=== PATIENT | male | born 1940 | race Hispanic/Latino ===

== ENCOUNTER → 2022-02-19 | Outpatient (CLI) | payer OTHER ==
[~2022-02-19] MED LIST: DIATR MEGLU/DIATRIZOATE SODIUM 30 ML BOTTLE ONE
== END | disposition home or self-care (01) ==
LOC: RAH 10:31
PROVIDERS: ATTEND Internal Medicine Gastroenterology
DX: K94.20 Gastrostomy complication, unspecified (principal)
CPT/HCPCS: 74018; Q9963

== ENCOUNTER → 2023-02-05 | Outpatient (CLI) | payer OTHER | END | disposition home or self-care (01) | LOC: RAH 10:22 | PROVIDERS: ATTEND Internal Medicine Gastroenterology | DX: K94.20 Gastrostomy complication, unspecified (principal); M47.815 Spondylosis without myelopathy or radiculopathy, thoracolumbar region | CPT/HCPCS: 74018; Q9963 ==

== ENCOUNTER → 2023-10-15 | Outpatient (CLI) | payer OTHER | END | disposition home or self-care (01) | LOC: RAH 11:48 | PROVIDERS: ATTEND Internal Medicine Gastroenterology | DX: K94.20 Gastrostomy complication, unspecified (principal) | CPT/HCPCS: 74018; Q9963 ==

== ENCOUNTER → 2024-04-06 | Outpatient (CLI) | payer OTHER ==
[~2024-04-06] MED LIST changes: -DIATR MEGLU/DIATRIZOATE SODIUM 30 ML BOTTLE ONE; +IOHEXOL 350 MG/ML 100ML INFUS..BTL IV ONE
== END | disposition home or self-care (01) ==
LOC: RAH 09:25
PROVIDERS: ATTEND Internal Medicine Gastroenterology
DX: K80.20 Calculus of gallbladder without cholecystitis without obstruction (principal); I25.10 Atherosclerotic heart disease of native coronary artery without angina pectoris; M47.815 Spondylosis without myelopathy or radiculopathy, thoracolumbar region; I70.90 Unspecified atherosclerosis; R63.4 Abnormal weight loss
CPT/HCPCS: 74177; Q9967

== ENCOUNTER 2025-02-28 10:38 | Emergency (ER) | payer OTHER, MEDICARE ==
[~2025-02-28] VITALS: Ht 175.3 cm; Wt 99.8 kg
--- NOTE | 2025-02-28 11:00 | NUR ---
PATIENT NOTED WITH ANASARCA, NO DISTRESS NOTED, PAITENT HAS GTUBE IN PLACE, CLEAN DRY AND INTACT, PATIENT ALSO NOTED WITH BILIARY DRAIN, SUTURED IN PLACE, SCANT DRAINAGE NOTED TO FOAM DRESSING THAT WAS PLACED BY SHELTER. REMOVED AT THIS TIME, NO DRAINAGE NOTED TO INSERTION SITE. PER DAUGHTER HE ACCIDENTLY PULLED ON THE DRAIN AND IS CONCERNED ABOUT IT BEING "IN PLACE" PER DAUGHTER PATIENT IS C/O OF PAIN TO THAT AREA. PATIENT ALSO NOTED WITH SKIN TEARS TO BILATERAL ARMS, DIFFERENT HEALING STAGES. AFTER PATINET WAS CLEANED AND ASSESSED, NOTED A SMALL 2 CM SKIN TEAR TO IV AREA, SCANT BLEEDING, CLEANED AND DRIED. 24 GAUGE IV TO LEFT FOREARM NOTED, SWELLING TO LEFT ARM AND HAND NOTED, FLUSHES WELL, NO C/O PAIN, NO SWELLING NOTED ABOVE IV SITE
--- NOTE | 2025-02-28 11:04 | ERN ---
ED Note History of Present Illness Stated Complaint: RUQ DRAINAGE TUBE COMPLICATION Chief Complaint: Other Problems Time Seen by MD: 10:44 Time Seen by Midlevel: 10:45 Dictation: 85-year-old male who presents to the emergency department per EMS for evaluation accompanied by his daughter due to report of having accidentally pulled on the drainage tube that was applied 2 days ago from having had gallbladder surgery. The concern by the patient/daughter is that part of the tube my had been disp laced. As per the patient and the daughter, the reason for that concern is that he is having abdominal pain at this point. Patient states that his pain is approximately a 3/10. He describes the discomfort as a 3 out of 10. There is no report of any fever or chills associated with this. Allergies: Coded Allergies: lisinopril (Unverified Allergy, Unknown, 02/28/25) sulfamethoxazole (Unverified Allergy, Unknown, 02/28/25) trimethoprim (Unverified Allergy, Unknown, 02/28/25) Past Medical History Past Medical History: CHF, Diabetes-Type II, Hypertension, Pneumonia, Stroke Additional Past Medical Hx: DYSPHAGIA, DYSARTHRIA, UNSTABLE GAIT Surgical History: Cholecystectomy Surgical History Other: DRAINAGE DEVICE RUQ, PEG TUBE RN Note Reviewed/Agreed w/PFSH: Yes Review of System Dictation Abdomen/GI: Abdominal pain Initial Vital Sign VS Vital Signs Date Time Temp Pulse Resp B/P (MAP) Pulse Ox O2 Delivery O2 Flow Rate FiO2 02/28/25 10:39 97.7 71 16 132/59 99 Room Air 0 02/28/25 10:58 21 Physical Exam Dictation General: awake, alert, mildly uncomfortable looking Head/Face: Normocephalic, atraumatic Eyes: PERRL, EOMI ENT: Oral mucosa moist Neck: Trachea midline, supple Cardiovascular: RRR, no edema Respiratory: Symmetrical, non-labored Abdomen: Soft, tenderness to right upper quadrant and epigastric area with voluntary guarding, non-distended, no guarding. Skin: Warm, dry, good turgor, no rash MS/Extremity: Pulses equal, no cyanosis, neurovascular intact, FROM Neuro: Awake and alert Psych: Normal behavior, mood, and affect normal Results (Laboratory/Radiology) Laboratory/Radiology Laboratory Tests Test 02/28/25 11:28 White Blood Count 7.6 K/uL (4.8-10.8) Red Blood Count 3.63 MIL/uL (4.50-6.20) L Hemoglobin 11.1 g/dL (14.0-18.0) L Hematocrit 36.0 % (42-54) L Mean Corpuscular Volume 99.2 fL (79-99) H Mean Corpuscular Hemoglobin 30.6 pg (27.0-33.0) Mean Corpuscular Hemoglobin Concent 30.8 g/dL (32.0-36.0) L Red Cell Distribution Width 17.7 % (11.0-15.5) H Platelet Count 257 K/uL (130-400) Mean Platelet Volume 10.4 fL (7.5-10.5) Immature Granulocyte % (Auto) 0.4 % (0-1) Neutrophils (%) (Auto) 73.0 % (40.0-77.0) Lymphocytes (%) (Auto) 16.4 % (21.0-51.0) L Monocytes (%) (Auto) 8.7 % (3.0-13.0) Eosinophils (%) (Auto) 1.4 % (0.0-8.0) Basophils (%) (Auto) 0.1 % (0.0-5.0) Neutrophils # (Auto) 5.6 K/uL (1.8-7.7) Lymphocytes # (Auto) 1.3 K/uL (1.0-4.8) Monocytes # (Auto) 0.7 K/uL (0.1-1.0) Eosinophils # (Auto) 0.11 K/uL (0.00-0.70) Basophils # (Auto) 0.01 K/uL (0.00-0.20) Absolute Immature Granulocyte (auto 0.03 K/uL (0-1) Nucleated Red Blood Cells 0.0 % (0.0-0.19) Red Blood Cell Morphology See comments Sodium Level 140 mmol/L (136-145) Potassium Level 4.5 mmol/L (3.5-5.1) Chloride Level 104 mmol/L (101-111) Carbon Dioxide Level 36 mmol/L (21-32) H Blood Urea Nitrogen 20 mg/dL (7-18) H Creatinine 0.8 mg/dL (0.5-1.3) Glomerular Filtration Rate Calc 87 mL/min (>90) Random Glucose 118 mg/dL (70-105) H Total Calcium 9.0 mg/dL (8.5-10.1) Total Bilirubin 0.8 mg/dL (0.2-1.0) Aspartate Amino Transf (AST/SGOT) 36 U/L (10-37) Alanine Aminotransferase (ALT/SGPT) 26 U/L (12-78) Alkaline Phosphatase 236 U/L (50-136) H Troponin I High Sensitivity 35 ng/L (4-75) Total Protein 7.8 g/dL (6.0-8.3) Albumin 2.0 g/dL (3.5-5.0) L Lipase 11 U/L (16-77) L Labs Reviewed?: Yes CT Scan Comment: CT abdomen/pelvis with no pertinent findings. ED Course ED Course Orders Procedure Category Date Status Time Troponin I High LAB 02/28/25 Complete Sensitivity 10:56 Cbc With Differential LAB 02/28/25 Complete 10:56 Comprehensive LAB 02/28/25 Complete Metabolic Panel 10:56 Lipase LAB 02/28/25 Complete 10:56 Ct Abdomen/Pelvis CT 02/28/25 Resulted W/Contrast 10:56 Morphine 4mg Syg PHA 02/28/25 Complete (Morphine 4mg Syg) 11:00 Ondansetron 4mg Inj PHA 02/28/25 Complete (Zofran 4mg Inj) 11:00 Chest 1vw RAD 02/28/25 Resulted 10:56 Iohexol (Omnipaque) PHA 02/28/25 Complete 12:15 Current Medications Medications (Trade) Dose Ordered Sig/Bee Route PRN Reason Start Time Stop Time Status Last Admin Dose Admin Iohexol (Omnipaque) 75 ml STK-MED ONCE IV 02/28/25 12:15 02/28/25 12:16 DC Morphine Sulfate (morPHINE 4MG SYG) 2 mg ONCE ONCE IVP 02/28/25 11:00 02/28/25 11:01 DC 02/28/25 11:41 Ondansetron HCl (zoFRAN 4MG INJ) 4 mg ONCE ONCE IVP 02/28/25 11:00 02/28/25 11:01 DC 02/28/25 11:39 Vital Signs Date Time Temp Pulse Resp B/P (MAP) Pulse Ox O2 Delivery O2 Flow Rate FiO2 02/28/25 10:58 98.2 70 18 120/60 96 Room Air* 0 21 02/28/25 10:39 97.7 71 16 132/59 99 Room Air 0 Medical Decision Making MDM MDM: Differential diagnosis: Rationale: Tests considered and ordered secondary to shared decision making include: Previous outside records reviewed: Old ER visits. Risk of complication and/or morbidity or mortality of patient management: None Medications-Per medication reconciliation Need for hospitalization: Patient does not meet criteria for hospitalization. Need for emergency major/minor surgery: No There are no social concerns with this patient. Prescription drug management Prescriptions will include symptomatic care Patient's prior external medical records from other ER visits were reviewed by me as indicated. Prior testing and results from previous visits were reviewed. Prior tests were taken into account with medical decision making and resource utilization, independent historian/historians were used to obtain complete medical history. I independently interpreted the test that were performed, results were reviewed by me and considered findings on radiology if ordered. Medical management and examination interpretation discussions were had by me with other qualified healthcare professionals as indicated for the patient's care. DX & DISP Disposition: Discharge Departure Impression: Primary Impression: Acute abdominal pain Condition: Stable Referrals: JOLENE BRYANT MD (PCP) Time of Disposition: 13:15 IZABELLA BARNARD Feb 28, 2025 11:04
--- NOTE | 2025-02-28 11:31 | HMCIMG ---
Exam Type: CHEST 1VW Clinical Information: pain Comparison: None Findings: Left cardiac pacemaker is noted with leads in place. There is prominence of the pulmonary vascular markings consistent with pulmonary venous congestion. . There is central bilateral perihilar edema consistent with congestive heart failure. The heart is enlarged in size. The bony and soft tissue structures of the chest are unremarkable. Impression: Congestive heart failure with perihilar edema as noted.
[2025-02-28] MEDS: ondanSETRON 4MG INJ IVP ONE (11:39)
[2025-02-28] MEDS: morPHINE 4 MG SYG IVP ONE (11:41)
[2025-02-28 11:53] LABS: BASOPHILS # (AUTO) 0.01 K/uL (0.00-0.20); BASOPHILS % (AUTO) 0.1 % (0.0-5.0); EOSINOPHILS # (AUTO) 0.11 K/uL (0.00-0.70); EOSINOPHILS % (AUTO) 1.4 % (0.0-8.0); IMMATURE GRANULOCYTE ABSOLUTE 0.03 K/uL (0-1); LYMPHOCYTES # (AUTO) 1.3 K/uL (1.0-4.8); LYMPHOCYTES % (AUTO) 16.4 % (21.0-51.0); MEAN CORPUSCULAR HEMOGLOBIN 30.6 pg (27.0-33.0); MEAN CORPUSCULAR HGB CONC 30.8 g/dL (32.0-36.0); MEAN CORPUSCULAR VOLUME 99.2 fL (79-99); MONOCYTES # (AUTO) 0.7 K/uL (0.1-1.0); MONOCYTES % (AUTO) 8.7 % (3.0-13.0); NEUTROPHILS # (AUTO) 5.6 K/uL (1.8-7.7); PLATELET COUNT (AUTO) 257 K/uL (130-400); RED BLOOD CELL COUNT(AUTO) 3.63 MIL/uL (4.50-6.20); RED CELL DISTRIBUTION WIDTH 17.7 % (11.0-15.5); WHITE BLOOD COUNT (AUTO) 7.6 K/uL (4.8-10.8)
[2025-02-28 11:59] LABS: CREATININE 0.8 mg/dL (0.5-1.3); POTASSIUM 4.5 mmol/L (3.5-5.1)
[2025-02-28 12:05] LABS: BILIRUBIN,TOTAL 0.8 mg/dL (0.2-1.0); TOTAL PROTEIN, SERUM 7.8 g/dL (6.0-8.3)
[2025-02-28] MEDS ORDERED: IOHEXOL-350 75 ML VIAL IV ONE (12:15)
--- NOTE | 2025-02-28 13:00 | HMCIMG ---
Exam Type: CT ABDOMEN/PELVIS W/CONTRAST Clinical Information: pain Comparison: None Contrast: 100 cc's Isovue 370 IV, no complications or adverse reactions CT Dose Index (CTDI): 31.60 mGy Dose Length Product (DLP): 1740.80 total mGy-cm Findings: No evidence of nephro or ureterolithiasis is found. No hydronephrosis or ureteral dilatation is seen. There are moderate bilateral pleural effusions The stomach is unremarkable except for the presence of a PEG tube. It is not overly distended. There are no surrounding inflammatory changes. No wall lesions are identified to suggest cancer. The spleen is unremarkable. It is not enlarged. The pancreas shows normal anatomy. It is not fatty replaced. It shows no lesions. The pancreatic duct is not dilated. There is evidence of cholelithiasis. No evidence of acute or chronic inflammation is seen. The adrenal glands are unremarkable. There is no enlargement. No lesions are noted. The liver is unremarkable. It shows no focal masses. The appendix is unremarkable. It shows no evidence of inflammation. No appendicolith is seen. The small bowel is unremarkable. There is no evidence of dilatation to suggest obstruction. No evidence of adynamic ileus is seen. There is no small bowel wall thickening to suggest enteritis. The colon is unremarkable. Urinary bladder is distended. The other pelvic structures are unremarkable. The bony and vascular structures are unremarkable for the patient's age. IMPRESSION: Cholelithiasis. Bilateral moderate pleural effusions. Other findings as described. This study was performed using dose reduction techniques to include automated exposure control and/or adjustment of the mA and/or kV according to patient size.
--- NOTE | 2025-02-28 13:32 | NUR ---
[facility] NOTIFIED OF TRANSFER.
[2025-02-28 13:37] VITALS: O2SAT 96
--- NOTE | 2025-02-28 14:30 | NUR ---
DISCHARGE INST GIVEN TO DAUGHTER, PENDING EMS TRANSPORT TO [facility]
--- NOTE | 2025-02-28 17:00 | NUR ---
[facility] ARRIVED AT THIS TIME STAMP
[2025-02-28 17:03] VITALS: BP 121/64; PULSE 70; RESP 20; TEMP 98.2
--- NOTE | 2025-02-28 17:04 | NUR ---
EMS IN TO TRANSPORT PATIENT BACK TO [facility], DAUGHTER AT BEDSIDE, PATINET AWAKE AND ALERT, NO DISTRESS NOTED
[2025-03-01] MEDS ORDERED: METO25TA6 PO (22:08)
[2025-03-01] MEDS ORDERED: APIX5TAB PEG (22:09)
[2025-03-01] MEDS ORDERED: METF-446 PEG (22:10)
[2025-03-01] MEDS ORDERED: FINA5TAB41 PEG (22:14)
[2025-03-01] MEDS ORDERED: PRAV40TA62 PEG (22:16)
[2025-03-01] MEDS ORDERED: FURO20TA4 PEG (22:17)
[2025-03-01] MEDS ORDERED: AMOX1TAB15 PEG (22:20)
== END 2025-02-28 17:06 ==
LOC: EDH 10:38
DX: R10.11 Right upper quadrant pain (principal); R10.13 Epigastric pain; E11.9 Type 2 diabetes mellitus without complications; I11.0 Hypertensive heart disease with heart failure; I50.9 Heart failure, unspecified; Z86.73 Personal history of transient ischemic attack (TIA), and cerebral infarction without residual deficits; Z88.1 Allergy status to other antibiotic agents; Z88.2 Allergy status to sulfonamides; Z88.8 Allergy status to other drugs, medicaments and biological substances; Z90.49 Acquired absence of other specified parts of digestive tract
CPT/HCPCS: 99285; 74177; 96374; 71045; 96375; 84484; 80053; 83690; 85025; 36415; J2405; J2270; Q9967

== ENCOUNTER 2025-03-01 18:00 | Observation (INO) | payer OTHER, MEDICARE ==
[~2025-03-01] VITALS: Ht 177.8 cm; Wt 94.8 kg
[2025-03-01 19:53] LABS: BASOPHILS # (AUTO) 0.01 K/uL (0.00-0.20); BASOPHILS % (AUTO) 0.2 % (0.0-5.0); EOSINOPHILS % (AUTO) 1.5 % (0.0-8.0); HEMATOCRIT 34.3 % (42-54); IMMATURE GRANULOCYTE ABSOLUTE 0.02 K/uL (0-1); LYMPHOCYTES # (AUTO) 1.2 K/uL (1.0-4.8); LYMPHOCYTES % (AUTO) 18.2 % (21.0-51.0); MEAN CORPUSCULAR HEMOGLOBIN 30.6 pg (27.0-33.0); MEAN CORPUSCULAR HGB CONC 30.6 g/dL (32.0-36.0); MONOCYTES # (AUTO) 0.6 K/uL (0.1-1.0); NEUTROPHILS # (AUTO) 4.6 K/uL (1.8-7.7); NEUTROPHILS % (AUTO) 70.8 % (40.0-77.0); PLATELET COUNT (AUTO) 270 K/uL (130-400); RED BLOOD CELL COUNT(AUTO) 3.43 MIL/uL (4.50-6.20); RED CELL DISTRIBUTION WIDTH 17.6 % (11.0-15.5); WHITE BLOOD COUNT (AUTO) 6.5 K/uL (4.8-10.8)
--- NOTE | 2025-03-01 19:53 | NUR ---
pt arrived with gall bladder drain compication, drain as per daughter has not drained all day usiually pt has out put at 100 ml a day. pt did get up yesterday and accidently pulled on tube. pt has drain applied at [facility] in [place]. site looks good no redness, swelling or pain.
--- NOTE | 2025-03-01 20:00 | HMCIMG ---
ULTRASOUND ABDOMEN LIMITED INDICATION: Right upper abdominal pain COMPARISON: 02/28/2025 CT abdomen and pelvis. FINDINGS: The liver is normal in size and slightly increased in echogenicity; no focal lesion demonstrated. Main portal vein is patent, and normal direction of vascular flow demonstrated. Common bile duct is obscured by overlying bowel gas. Complex gallbladder sludge without associated pericholecystic fluid. No sonographic Navarro's sign elicited by the ultrasound hydroelectric station operator chief. Visible portions of the pancreas appear normal. The right kidney measures 9.7 x 4.8 x 5.7 cm,and is normal in echogenicity, without evidence for hydronephrosis.No shadowing stones demonstrated. No free fluid demonstrated. Small right pleural effusion. Echogenic "catheter-like" structure demonstrated within the anterior right upper abdominal wall. IMPRESSION: Complex gallbladder sludge without cholecystitis. Tip of cholecystostomy catheter may be within the anterior right upper abdominal wall. Small right pleural effusion. Findings suggesting mild hepatic steatosis.
[2025-03-01 20:08] LABS: CREATININE 0.8 mg/dL (0.5-1.3); POTASSIUM 4.4 mmol/L (3.5-5.1)
[2025-03-01 20:09] LABS: INR 1.32 (0.85-1.15); PROTHROMBIN TIME 13.6 SEC (9.6-11.6)
[2025-03-01 20:11] LABS: PARTIAL THROMBOPLASTIN TIME 34.2 SEC (26.3-35.5)
[2025-03-01 20:15] LABS: ALBUMIN 1.9 g/dL (3.5-5.0); BILIRUBIN,DIRECT 0.3 mg/dL (0.0-0.3); BILIRUBIN,TOTAL 0.6 mg/dL (0.2-1.0); TOTAL PROTEIN, SERUM 7.6 g/dL (6.0-8.3)
--- NOTE | 2025-03-01 20:16 | ERN ---
General Chief Complaint: Post-Op Problem Stated Complaint: GALLBLADDER BAG FULL/ NEEDS TO BE DRAINED History of Present Illness Initial Comments 85-year-old male brought in by daughter from [facility] for a possible percutaneous cholecystostomy complication. According to the family, the patient was septic a few weeks ago. They went to [facility], they were found to have a biliary source of the infection, and a percutaneous cholecystostomy tube was placed. The tube has been draining until yesterday. The family reports that it may have been dislodged. Today it has not been draining. The patient has not vomiting no fevers and otherwise has no complaints. Allergies: Coded Allergies: lisinopril (Unverified Allergy, Unknown, 02/28/25) sulfamethoxazole (Unverified Allergy, Unknown, 02/28/25) trimethoprim (Unverified Allergy, Unknown, 02/28/25) Past Medical History Past Medical History: CHF, Diabetes-Type II, Hypertension, Pneumonia, Stroke Medical History Other: DYSPHAGIA, DYSARTHRIA, UNSTABLE GAIT Past Surgical History: Cholecystectomy Surgical History Other: DRAINAGE DEVICE RUQ, PEG TUBE ROS Dictation CONSTITUTIONAL: No chills, no fever, no weakness, no diaphoresis, no malaise. HEAD/FACE: No signs of trauma. EENT: No eye pain, no blurred vision, no tearing, no double vision, no ear pain, no ear discharge, no nose pain, no nasal congestion, no throat pain, no th roat swelling, no mouth pain. RESPIRATORY: No cough, no orthopnea, no SOB, no stridor, no wheezing. CARDIOVASCULAR: No chest pain, no edema, no palpitations, no syncope. GASTROINTESTINAL/ABDOMINAL: Cholecystostomy drain not draining GENITOURINARY: No abnormal discharge, no dysuria, no frequent urination, no hematuria. No complaints of pain in the genitals. MUSCULOSKELETAL: No back pain, no gout, no joint pain, no joint swelling, no muscle pain, no muscle stiffness, no neck pain. INTEGUMENTARY: No change in color, no change in hair/nails, no dryness, no lesion, no lumps, no rash. NEUROLOGICAL/PSYCH: No anxiety, not depressed, no emotional problem, no headache, no numbness, no pre-existing deficit, no history of seizures, no tremors, no weakness. HEMATOLOGIC/LYMPHATIC: Not anemic, no history of blood clots, no apparent bleeding, no bruising, glands not swollen. All Systems Negative, Except as Noted. Physical Exam Physical Exam Dictation VITAL SIGNS: Reviewed. GENERAL APPEARANCE: Alert to baseline mentation HEAD AND FACE: Non-traumatic. EYES: PERRL, pink conjunctivas, eyelid no trauma, anterior chamber clear. EARS: Pinnas intact and no signs of trauma or erythema. Ear canals clear and no discharge. TMs no erythema. NOSE: No discharge, no bleeding. OROPHARYNX: Mouth normal, teeth no caries, tongue pink. Pharynx clear, no erythema. Tonsils no exudates, no abscesses noted. Mucous membrane moist. NECK: Supple, non-tender, no thyromegaly, no masses, no JVD, no bruits. BREAST: Deferred. CHEST: No tenderness, no crepitus, no paradoxical movement, no retractions. LUNGS: Clear, well-ventilated, symmetric, no rales, no wheezing, no rhonchi, no stridor, good breath sounds bilaterally. HEART: Regular rate, regular rhythm, no murmur, no gallops. VASCULAR: No peripheral edema. ABDOMEN: Soft, positive bowel sounds, nondistended, no guarding, nontender, no rebound, no masses no hepatomegaly, no splenomegaly, no Navarro's sign, no hernias. Cystostomy tube in place, the curl appears to be outside of the skin. RECTAL: Deferred. GENITAL: Deferred. NEUROLOGICAL: Normal speech, gross motor function intact, gross sensory function intact. MUSCULOSKELETAL: Neck nontender, full range of motion, back nontender, full range of motion. EXTREMITIES: Nontender, full range of motion. SKIN: Color pink, dry, no turgor, no rash, no lacerations, no abrasions, no contusions. LYMPHATICS: Deferred. Results Laboratory and Microbiology Lab and Micro Result Laboratory Tests Test 03/01/25 19:41 White Blood Count 6.5 K/uL (4.8-10.8) Red Blood Count 3.43 MIL/uL (4.50-6.20) L Hemoglobin 10.5 g/dL (14.0-18.0) L Hematocrit 34.3 % (42-54) L Mean Corpuscular Volume 100.0 fL (79-99) H Mean Corpuscular Hemoglobin 30.6 pg (27.0-33.0) Mean Corpuscular Hemoglobin Concent 30.6 g/dL (32.0-36.0) L Red Cell Distribution Width 17.6 % (11.0-15.5) H Platelet Count 270 K/uL (130-400) Mean Platelet Volume 10.2 fL (7.5-10.5) Immature Granulocyte % (Auto) 0.3 % (0-1) Neutrophils (%) (Auto) 70.8 % (40.0-77.0) Lymphocytes (%) (Auto) 18.2 % (21.0-51.0) L Monocytes (%) (Auto) 9.0 % (3.0-13.0) Eosinophils (%) (Auto) 1.5 % (0.0-8.0) Basophils (%) (Auto) 0.2 % (0.0-5.0) Neutrophils # (Auto) 4.6 K/uL (1.8-7.7) Lymphocytes # (Auto) 1.2 K/uL (1.0-4.8) Monocytes # (Auto) 0.6 K/uL (0.1-1.0) Eosinophils # (Auto) 0.10 K/uL (0.00-0.70) Basophils # (Auto) 0.01 K/uL (0.00-0.20) Absolute Immature Granulocyte (auto 0.02 K/uL (0-1) Nucleated Red Blood Cells 0.0 % (0.0-0.19) Prothrombin Time 13.6 SEC (9.6-11.6) H Prothromb Time International Ratio 1.32 (0.85-1.15) H Activated Partial Thromboplast Time 34.2 SEC (26.3-35.5) Sodium Level 140 mmol/L (136-145) Potassium Level 4.4 mmol/L (3.5-5.1) Chloride Level 102 mmol/L (101-111) Carbon Dioxide Level 35 mmol/L (21-32) H Blood Urea Nitrogen 23 mg/dL (7-18) H Creatinine 0.8 mg/dL (0.5-1.3) Glomerular Filtration Rate Calc 87 mL/min (>90) Random Glucose 163 mg/dL (70-105) H Total Calcium 8.9 mg/dL (8.5-10.1) Total Bilirubin 0.6 mg/dL (0.2-1.0) Direct Bilirubin 0.3 mg/dL (0.0-0.3) Aspartate Amino Transf (AST/SGOT) 34 U/L (10-37) Alanine Aminotransferase (ALT/SGPT) 20 U/L (12-78) Alkaline Phosphatase 208 U/L (50-136) H Total Creatine Kinase 56 U/L (21-232) Troponin I High Sensitivity 27.6 ng/L (4-75) Total Protein 7.6 g/dL (6.0-8.3) Albumin 1.9 g/dL (3.5-5.0) L Lipase 14 U/L (16-77) L MDM CC: Concern for percutaneous cholecystostomy drain complication Historian: Daughter, patient has a history of dementia/stroke unable to provide history. Limitations by social determinants of health: None Comorbidities: CHF, diabetes type 2, hypertension, pneumonia, dysphagia, dysarthria, peg tube, stroke Differential diagnosis: Cholecystostomy drain complication, removal. Vital signs: Stable. No fevers or tachycardia. Labs (independently ordered and interpreted by me): No leukocytosis, no shift, no bands. Macrocytic anemia hemoglobin 10.5. Coags stable, INR 1.3. Chemistry shows elevated BUN to creatinine ratio consistent with dehydration. Liver enzymes are stable. CK is stable. Troponin stable. Lipase is normal. Ultrasound of the right upper quadrant (independently interpreted by me): The cholecystostomy drain does not appear to be in place. Consultation: I spoke with Dr. Moody, who performed the surgery at [facility]. We discussed the case. I suggested that we remove the tube and he agrees. Plan: We will admit the patient for observation. Treatment in ED: Cholecystostomy drain removal, 1L LR. Consultation: Hospitalist for admission. ED Course Orders Procedure Category Date Status Time Us Abdominal Ruq\Ltd US 03/01/25 Resulted 18:44 Cardiac Panel LAB 03/01/25 Complete 19:35 Cbc With Differential LAB 03/01/25 Complete 19:35 Basic Metabolic Panel LAB 03/01/25 Complete 19:35 Hepatic Function Panel LAB 03/01/25 Complete 19:35 Lipase LAB 03/01/25 Complete 19:35 Pt And Ptt LAB 03/01/25 Complete 19:35 Lactated Ringers PHA 03/01/25 Complete 1000ml (Lactated 20:30 Current Medications Medications (Trade) Dose Ordered Sig/Bee Route PRN Reason Start Time Stop Time Status Last Admin Dose Admin Lactated Ringer's 1,000 ml @ 0 mls/hr ONCE ONCE IV 03/01/25 20:30 03/01/25 20:31 DC 03/01/25 20:38 Vital Signs Date Time Temp Pulse Resp B/P (MAP) Pulse Ox O2 Delivery O2 Flow Rate FiO2 03/01/25 20:39 70 18 134/84 98 Room Air* 0 21 03/01/25 19:52 73 18 134/84 94 Room Air* 0 21 03/01/25 18:11 98.4 70 16 113/55 97 Room Air 0 Procedure Dictation Procedure note: Percutaneous cholecystostomy tube removal Procedure: Removal of percutaneous cholecystostomy tube Date: 03/01/2025 at [address] Sesay Indication: Clinical resolution of cholecystitis, accidental tube removal Consent: Verbal consent by daughter at bedside. Risks and benefits explained. Patient placed in supine position. The site was exposed and cleaned with chlorhexidine. Sterile technique maintained throughout the procedure. Anchoring sutures removed. Patient was instructed perform a Valsalva maneuver. Under steady traction, I removed the cholecystostomy tube without resistance or complication. No blood or bile leakage noted. A sterile occlusive dressing was applied. No postprocedure complications. Dressing to be left in place for 48 hours. Total time: 2 minutes. DX & DISP Disposition: Inpatient (Hospitalist) Departure Impression: Primary Impression: Cholecystostomy tube dysfunction Additional Impressions: Dehydration, Macrocytic anemia Condition: Stable Referrals: JOLENE BRYANT MD (PCP) COLLEEN SESAY DO Mar 01, 2025 20:16
[2025-03-01] MEDS: LACTATED RINGERS 1000ML 1,000 ML IV ONE (20:38)
--- NOTE | 2025-03-01 21:11 | HP ---
[facility] HISTORY AND PHYSICAL Date of Service: Mar 01, 2025 Time of Service: 21:11 HISTORY OF PRESENT ILLNESS: Mr. Connolly is a 85-year-old male brought in by daughter from [facility] for a possible percutaneous cholecystostomy complication. According to the daughter, the patient was septic a few weeks ago. They went to [facility] where they were found to have a biliary source of the infection, and a percutaneous cholecystostomy tube was placed. The daughter reported that tube was draining 100 mL daily. The daughter stated that on 02/28/2025 the tube stopped draining, patient was brought to the ED, ED reported that was working, and patient was discharged. The daughter states that the drain did not drain all day today again which prompted the 2nd ED visit. The daughter denied any vomiting, fever, any other complaints. In ED abdominal sonogram was done: Impression, complex gallbladder sludge without cholecystitis. Tip of cholecystostomy catheter maybe within the anterior right upper abdominal wall. Small right pleural effusion. Findings suggesting mild hepatic steatosis. Labs reviewed. WBC. WNL. ED provider reports he spoke to Dr. Dutch Moody, surgeon and informed him that the catheter was out of place. ED physician reports that Dr. Moody said okay to pull out the catheter. ED providers stated that he would like patient admitted for observation due to patient not being able to communicate if there is pain or problem after the tube was removed. ED provider request patient be admitted with the diagnosis of percutaneous cholecystostomy tube dysfunction, microcytic anemia, and dehydration. I assessed the patient in 432. The daughter was at bedside and states that the patient lives with her and she takes care him and that she has taken care of him for years. The patient is oriented to person, breathing was even, unlabored, lethargic. Daughter reports that he is just sleepy and he woke up to her painful stimuli. The patient has a rash that is small red bumps with mary anne tracts in hand, abdomen, groin. The groin area is macerated. Patient has decubitus ulcer in the buttocks. I answered the daughter's multiple questions. I informed her of labs, diagnostics, and plan of care. She verbalized un derstanding and is in agreement with the plan. Plan and assessment are listed below. REVIEW OF SYSTEMS Unable to obtain ROS from patient due to patient is lethargic. PAST MEDICAL HISTORY: As mentioned above PAST SURGICAL HISTORY: Cholecystectomy PAST SOCIAL HISTORY: Negative FAMILY HISTORY: Noncontributory Coded Allergies: lisinopril (Unverified Allergy, Unknown, 02/28/25) sulfamethoxazole (Unverified Allergy, Unknown, 02/28/25) trimethoprim (Unverified Allergy, Unknown, 02/28/25) PHYSICAL EXAM GENERAL APPEARANCE: The patient is lethargic and appears ill. NEUROLOGICAL: Lethargic, oriented to person, speech is mumbled. HEENT: Face is symmetric. Pupils are equal and reactive. Extraocular movements are intact. NECK: Supple. No JVD. No thyromegaly. No submental, submandibular, pre-/postauricular, occipital or supraclavicular lymphadenopathy. CHEST: Normal chest expansion. No Telemetry. LUNGS: Absence of any rales, rhonchi or any wheezing. CARDIOVASCULAR: Regular. S1 and S2 normal. No appreciable rubs, murmurs or gallops. ABDOMEN: Soft, nontender, and nondistended. There is no rebound, voluntary guarding, or rigidity. : Deferred. No Chavez. EXTREMITIES: Edema. No cyanotic. No clubbing. Good capillary refill. SKIN: Groin area is macerated. Buttock has decubitus ulcer. Vital Sign (Last 24 Hours) 03/01/25 03/01/25 18:11 20:39 Temp 98.4 Pulse 70 Resp 18 B/P (MAP) 134/84 Pulse Ox 98 O2 Delivery Room Air* O2 Flow Rate 0 FiO2 21 LABS: Laboratory: Test 03/01/25 19:41 Range/Units White Blood Count 6.5 4.8-10.8 K/uL Red Blood Count 3.43 L 4.50-6.20 MIL/uL Hemoglobin 10.5 L 14.0-18.0 g/dL Hematocrit 34.3 L 42-54 % Mean Corpuscular Volume 100.0 H 79-99 fL Mean Corpuscular Hemoglobin 30.6 27.0-33.0 pg Mean Corpuscular Hemoglobin Concent 30.6 L 32.0-36.0 g/dL Red Cell Distribution Width 17.6 H 11.0-15.5 % Platelet Count 270 130-400 K/uL Mean Platelet Volume 10.2 7.5-10.5 fL Immature Granulocyte % (Auto) 0.3 0-1 % Neutrophils (%) (Auto) 70.8 40.0-77.0 % Lymphocytes (%) (Auto) 18.2 L 21.0-51.0 % Monocytes (%) (Auto) 9.0 3.0-13.0 % Eosinophils (%) (Auto) 1.5 0.0-8.0 % Basophils (%) (Auto) 0.2 0.0-5.0 % Neutrophils # (Auto) 4.6 1.8-7.7 K/uL Lymphocytes # (Auto) 1.2 1.0-4.8 K/uL Monocytes # (Auto) 0.6 0.1-1.0 K/uL Eosinophils # (Auto) 0.10 0.00-0.70 K/uL Basophils # (Auto) 0.01 0.00-0.20 K/uL Absolute Immature Granulocyte (auto 0.02 0-1 K/uL Nucleated Red Blood Cells 0.0 0.0-0.19 % Prothrombin Time 13.6 H 9.6-11.6 SEC Prothromb Time International Ratio 1.32 H 0.85-1.15 Activated Partial Thromboplast Time 34.2 26.3-35.5 SEC Sodium Level 140 136-145 mmol/L Potassium Level 4.4 3.5-5.1 mmol/L Chloride Level 102 101-111 mmol/L Carbon Dioxide Level 35 H 21-32 mmol/L Blood Urea Nitrogen 23 H 7-18 mg/dL Creatinine 0.8 0.5-1.3 mg/dL Glomerular Filtration Rate Calc 87 >90 mL/min Random Glucose 163 H 70-105 mg/dL Total Calcium 8.9 8.5-10.1 mg/dL Total Bilirubin 0.6 0.2-1.0 mg/dL Direct Bilirubin 0.3 0.0-0.3 mg/dL Aspartate Amino Transf (AST/SGOT) 34 10-37 U/L Alanine Aminotransferase (ALT/SGPT) 20 12-78 U/L Alkaline Phosphatase 208 H 50-136 U/L Total Creatine Kinase 56 21-232 U/L Troponin I High Sensitivity 27.6 4-75 ng/L Total Protein 7.6 6.0-8.3 g/dL Albumin 1.9 L 3.5-5.0 g/dL Lipase 14 L 16-77 U/L DIAGNOSTICS / RADIOLOGY: [ ] ASSESSMENT: Cholecystostomy tube dysfunction s/p removal by ED Complex gallbladder sludge without cholecystitis, per sonogram on 03/01/2025 Small right pleural effusion, per sonogram on 03/01/2025 Mild hepatic steatosis, per sonogram on 03/01/2025 Acute dehydration, POA Bilateral extremity edema, POA Acute metabolic encephalopathy, lethargic, POA Scabies, POA Macerated groin, POA Decubitus ulcer in the buttocks, POA Macrocytic anemia 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 -Dr. Dutch Moody, general surgeon with privileges at [facility] was consulted by ED. -Consult general surgery. -NPO for now. -Start D10 NS. (ED administered LR 1 L) -Monitor for fluid overload. -Monitor respiratory status, PRN oxygen therapy to keep Spo2>/+=92%. -Start promethazine 5% cream. -Consult Wound Care. -Reposition every 2 hours and p.r.n.. -Reconciled/start home medication amoxicillin/K Clav, Eliquis, finasteride, Lasix, metoprolol, pravastatin. -Hold home medication metformin. -Glucometer checks AC & HS needed with insulin regular sliding scale coverage as needed. -PRN medications for: Pain management, fever, hypertension, N/V, constipation. -Blood pressure checks every 4 hours and as needed. -Reconcile home medications once available. - Monitor renal and liver function. -Monitor electrolytes and treat accordingly PRN -AM labs. -GI and DVT prophylaxis -Pending to obtain ABG, influenza, COVID, UA. -Further plan/orders per hospitalization course. ADVANCED CARE PLANNING 1. Which of the following were discussed? Hospice Care - No Therapeutic options - Yes Advance Directives - Yes Other discussions - 2. Discussed with who? The patient/ daughter 3. Voluntary nature of this service was explained to the patient? Yes 4. Amount of time spent - __ Over 40 minutes 5. Reviewed by Physician? (if this service was performed by NPP) Yes / No ATTESTATION BY PHYSICIAN I have seen and examined the patient. I reviewed the documentation, medical decision making, and treatment plan as noted by the mid-level provider above. I agree with the findings and plan of care. NARESH CALIX [facility] Mar 01, 2025 21:11
--- NOTE | 2025-03-01 21:24 | NUR ---
percutaneous drain removed by ERMD. Pt to be admitted for observation. catheter intact, nonadherant dressing applied.
[2025-03-01] MEDS ORDERED: doCUSate SODIUM 100 MG CAP PO PRN (21:30)
[2025-03-01] MEDS ORDERED: TEMAZepam 15 MG CAPSULE PO PRN (21:30)
[2025-03-01] MEDS ORDERED: acetaMINOPHEN 650 MG SUPPOSITORY RC PRN (21:30)
[2025-03-01] MEDS ORDERED: LACTATED RINGERS 1000ML 1,000 ML IV SCH (21:30)
[2025-03-01] MEDS ORDERED: LACTULOSE 20 GM/30 ML UDCUP PO PRN (21:30)
[2025-03-01] MEDS ORDERED: LAbetaLOL 20MG SYG IV PRN (21:30)
[2025-03-01] MEDS ORDERED: acetaMINOPHEN 325 MG TAB PO PRN (21:30)
[2025-03-01] MEDS ORDERED: ondanSETRON 4MG INJ IVP PRN (21:30)
--- NOTE | 2025-03-01 21:40 | NUR ---
family asked to stop LR bolus, pt is on fluid restriction. pt does have swelling to extremities.
[2025-03-01] MEDS ORDERED: METO25TA6 PO (22:08)
[2025-03-01] MEDS ORDERED: APIX5TAB PEG (22:09)
[2025-03-01] MEDS ORDERED: METF-446 PEG (22:10)
[2025-03-01] MEDS ORDERED: FINA5TAB41 PEG (22:14)
[2025-03-01] MEDS ORDERED: PRAV40TA62 PEG (22:16)
[2025-03-01] MEDS ORDERED: FURO20TA4 PEG (22:17)
[2025-03-01] MEDS ORDERED: AMOX1TAB15 PEG (22:20)
[2025-03-01 22:48] VITALS: BP 117/47; PULSE 72; RESP 19; TEMP 98; O2SAT 93
--- NOTE | 2025-03-01 22:48 | NUR ---
ADMISSION: PT RECEIVED FROM ER VIA STRETCHER, NO FAMILY AT BEDSIDE. PT IS AWAKE/ALERT TO NAME ONLY, NOT ANSWERING QUESTIONS REGARDING HISTORY. TELE # 28 PLACED TO CHEST WALL. ABD DISTENDED WITH DRESSING TO RIGHT UPPER QUADRANT DRY/INTACT. MULTIPLE BRUISING/SCABS/EDEMA NOTED TO BILATERAL UPPER ARMS. REDNESS/BRUISING NOTED TO ABD. PEG TUBE CLAMPED. +2 PITTING EDEMA NOTED TO LOWER EXTREMITIES. MACERATION/EXCORIATION NOTED TO SACRAL AREA AND JOHANN AREA. PT HAD BOWEL MOVEMENT, DIAPER CHANGED. PICTURES TAKEN OF SACRAL AREA PER HOSPITAL PROTOCOL. IV .SL TO RIGHT HAND, NO REDNESS, NO SWELLING, NO TENDERNESS NOTED. ORIENTED TO ROOM, SURROUNDINGS AND CALL LIGHT. S/R UP X3, BED ALARM IN PLACE.
[2025-03-02] MEDS: SODIUM CL 4MEQ/ML 30ML 154 MEQ in DEXTROSE 10%-WATER 961.5 ML IV SCH (00:34)
[2025-03-02] MEDS: PERMETHRIN CREAM 5% 60GM TUBE TP ONE (00:34)
--- NOTE | 2025-03-02 00:35 | NUR ---
ELIMITE CREAM: REDNESS/SCRATCHES NOTED THROUGHOUT BODY. NEW ORDERS TO APPLY ELIMITE 5% CREAM APPLIED GENEROUSLY THROUGHOUT WHOLE BODY. DAUGHTER AT BEDSIDE, INSTRUCTED ON CONTACT PRECAUTIONS FOR THE POSSIBILITY OF SCABIES.
[2025-03-02 03:48] LABS: HEMATOCRIT 32.5 % (42-54); MEAN CORPUSCULAR HEMOGLOBIN 30.9 pg (27.0-33.0); MEAN CORPUSCULAR HGB CONC 31.4 g/dL (32.0-36.0); MEAN CORPUSCULAR VOLUME 98.5 fL (79-99); RED BLOOD CELL COUNT(AUTO) 3.3 MIL/uL (4.50-6.20); RED CELL DISTRIBUTION WIDTH 17.6 % (11.0-15.5); WHITE BLOOD COUNT (AUTO) 6.5 K/uL (4.8-10.8)
--- NOTE | 2025-03-02 04:15 | NUR ---
EDUCATION: DAUGHTER IS ADAMANT THAT SHE IS GOING TO GIVE HER DAD HIS ANTIBIOTICS THROUGH THE PEG. DAUGHTER INSTRUCTED THAT HOME MEDICATIONS HAVE NOT BEEN RECONCILED BY PRIMARY DOCTOR OF NOW. DAUGHTER IS NOT USING CONTACT ISOLATION PRECAUTIONS, EDUCATED AGAIN ON THE USE OF PPE AND HAND WASHING.
[2025-03-02 04:19] VITALS: BP 137/61; PULSE 70; RESP 18; TEMP 98.1
[2025-03-02 04:21] LABS: CREATININE 0.8 mg/dL (0.5-1.3); MAGNESIUM 1.4 mg/dL (1.80-2.40); POTASSIUM 4.3 mmol/L (3.5-5.1); THYROID STIMULATING HORMONE 4.5 uIU/mL (0.36-3.74)
[2025-03-02 04:56] LABS: PHOSPHORUS 3.4 mg/dL (2.5-4.9)
[2025-03-02 05:20] LABS: ALBUMIN 1.9 g/dL (3.5-5.0); BILIRUBIN,TOTAL 0.5 mg/dL (0.2-1.0); TOTAL PROTEIN, SERUM 7.2 g/dL (6.0-8.3)
[2025-03-02 05:22] LABS: HEMOGLOBIN A1C 8.3 % (4.0-6.0)
[2025-03-02] MEDS: INSULIN humuLIN R 100 UNIT/ML 3ML SQ SCH (06:02)
[2025-03-02 07:41] LABS: ABG BASE EXCESS 6.6 mmol/L (-2.0-3.0); ABG HCO3 32.1 mmol/L (21.0-28.0); ABG OXYGEN SATURATION 92.3 % (94.0-98.0); ABG PCO2 50 mmHg (35-48); ABG PH 7.426 (7.350-7.450); CARBON MONOXIDE 0.6 % (0.5-1.5); HHb 7.6; PO2, ARTERIAL BG 66.2 mmHg (83.0-108.0); VENT MODE, BG RA (ROOM AIR)
[2025-03-02 08:00] VITALS: BP 105/61; PULSE 71; RESP 19; TEMP 97.7; O2SAT 98
[2025-03-02 08:00] LABS: APPEARANCE,URINE CLEAR (CLEAR); BILIRUBIN,URINE NEGATIVE (NEGATIVE); COLOR,URINE YELLOW (YELLOW); GLUCOSE, URINE (UA) 200 mg/dL (NEGATIVE); KETONES,URINE NEGATIVE (NEGATIVE); LEUKOCYTE ESTERASE ,URINE 25 Leu/uL (NEGATIVE); NITRATE,URINE NEGATIVE (NEGATIVE); OCCULT BLOOD,URINE NEGATIVE (NEGATIVE); PH,URINE 5.5 (5.0-8.0); PROTEIN,URINE 20 mg/dL (NEGATIVE); UROBILINOGEN,URINE 0.2 mg/dL (0.2-1.0)
[2025-03-02 08:05] LABS: ADD UA MICROSCOPIC YES
[2025-03-02 08:09] LABS: MUCUS,URINE RARE LPF (None Seen); RBC,URINE 0-1 /HPF (0-1); SQUAMOUS EPITHELIAL CELL,UR RARE /HPF (0-2)
[2025-03-02] MEDS ORDERED: PoTASSium chloRIDE 20MEQ ER 20 MEQ ERTAB PO PRN (08:30)
[2025-03-02] MEDS ORDERED: DEXTROSE 50%-WATER 50 ML DISP.SYRIN IV PRN (08:30)
[2025-03-02] MEDS ORDERED: PoTASSium chloRIDE 20MEQ/100ML 100 ML IV PRN (08:30)
[2025-03-02] MEDS ORDERED: GLUCAGON 1MG KIT 1 MG ML IM PRN (08:30)
[2025-03-02] MEDS ORDERED: PoTASSium chl 10% ELIXIR 20MEQ 20 MEQ/15 ML UDCUP PO PRN (08:30)
[2025-03-02] MEDS: APIXaban 5 MG TABLET NG SCH (09:00)
[2025-03-02] MEDS ORDERED: finaSTERide 5 MG TABLET PEG SCH (09:00)
--- NOTE | 2025-03-02 09:12 | NUR ---
[place] Care Coordination Call- Not service connected for SNF Discussed discharge planning. Patient comes from [facility] for non-functioning jean drain. Patient does not meet mandatory eligibility for SNF and will need to use another payer source if SNF is needed on discharge.
[2025-03-02] MEDS: AMOX/CLAV 500/125MG TAB PO SCH (09:14)
[2025-03-02] MEDS: furoSEMIDE 20 MG TABLET PEG SCH (09:14)
[2025-03-02] MEDS: MAGNESIUM 2GM PREMIX 50ML 50 ML IV PRN (09:15)
[2025-03-02] MEDS: metoPROLOL tartRATE 25 MG TAB PO SCH (09:28)
--- NOTE | 2025-03-02 09:51 | NUR ---
MED PATIENT DAUGHTER AT BEDSIDE REFUSED ELIQUIS MORNING DOSE BECAUSE SHE STATED DOES NOT WANT IT TO BE GIVEN. EDUCATED ON POSSIBLE RISK OF NOT TAKING IT. PT DAUGHTER CONTINUED TO REFUSED. WILL CONTINUE TO MONITOR.
[2025-03-02 10:46] LABS: % IRON SATURATION 12.7 % (30-44)
[2025-03-02 11:00] VITALS: BP 129/74; PULSE 66; RESP 18; TEMP 97.2
--- NOTE | 2025-03-02 11:11 | NUR ---
NOTE NEW ORDER FOR LASIX 4O IV. TEXT [facility]ILVER IF OKAY TO GIVE SINCE PO LASIX WAS GIVEN IN THE AM. OKAY TO ADMINISTER.
--- NOTE | 2025-03-02 11:41 | NUR ---
DCP: HOME Per daughter/BRITTNY Jaramillo [phone], she lives with pt and is primary caregiver. Pt is a [place] and is under care of [facility], and the home care program. Pt has a provider 38hrs a week, thru [facility]. Pt was discharged from [place] yesterday after 10 day stay for ABX. PA is arranging HH for PT and pending auth. Pt also has [facility] and nurse that comes to home as needed. Pt has van with ramp for transportation, walker, w/c, scooter, hospital bed and shower chair. Daughter [place]. [place] called PA to verify services and HH set, waiting for call back Addendum: 03/02/25 at 1147 by HOLLY WHITE Amended: Links added.
--- NOTE | 2025-03-02 11:51 | NUR ---
[facility] f/u Sw spoke to [facility] at [place]. They have not recd order for HH for pt. MD can order and they can arrange. SW notified Daughter, nurse, and CM of this.
--- NOTE | 2025-03-02 12:06 | NUR ---
[facility] Consult: Patient assessed by wound healing team. See wound assessment. Assessment and recommendations provided to primary nurse. Education provided. Addendum: 03/02/25 at 1453 by ERASMO LOBO RN RN/ Amended: Links added.
--- NOTE | 2025-03-02 12:17 | NUR ---
CARDIAC CONSULT PAGED DR. MARTINES FOR FOR NEW CONSULT. MD CALLED BACK AND STATED PATIENT TO KEEP FOLLOW UP APPOINTMENT FOR MONITORING DUE TO PATIENT NOT BEING ADMITTED FOR CARDIAC ISSUES. NOTIFIED MD, PER PATIENT'S DAUGHTER WAS JUST SEEN THIS WEEK BY DR. MARTINES. NO NEW ORDERS GIVEN. OK TO BE DISCHARGED FROM CARDIO STANDPOINT AND FOLLOW UP OUTPATIENT.
[2025-03-02] MEDS: furoSEMIDE 40MG VIAL IV SCH (12:29)
[2025-03-02] MEDS ORDERED: IRON sUCROse COMPLEX 100 MG/5 ML VIAL IV SCH (14:00)
--- NOTE | 2025-03-02 15:00 | DS ---
Discharge Summary Hospital Course Summary: 03/01/2025 - Mr. Connolly is a 85-year-old male brought in by daughter from [facility] for a possible percutaneous cholecystostomy complication. According to the daughter, the patient was septic a few weeks ago. They went to [facility] where they were found to have a biliary source of the infection, and a percutaneous cholecystostomy tube was placed. The daughter reported that tube was draining 100 mL daily. The daughter stated that on 02/28/2025 the tube stopped draining, patient was brought to the ED, ED reported that was working, and patient was discharged. The daughter states that the drain did not drain all day today again which prompted the 2nd ED visit. The daughter denied any vomiting, fever, any other complaints. In ED abdominal sonogram was done: Impression, complex gallbladder sludge without cholecystitis. Tip of cholecystostomy catheter maybe within the ant erior right upper abdominal wall. Small right pleural effusion. Findings suggesting mild hepatic steatosis. Labs reviewed. WBC. WNL. ED provider reports he spoke to Dr. Dutch Moody, surgeon and informed him that the catheter was out of place. ED physician reports that Dr. Moody said okay to pull out the catheter. ED providers stated that he would like patient admitted for observation due to patient not being able to communicate if there is pain or problem after the tube was removed. ED provider request patient be admitted with the diagnosis of percutaneous cholecystostomy tube dysfunction, microcytic anemia, and dehydration. I assessed the patient in 432. The daughter was at bedside and states that the patient lives with her and she takes care him and that she has taken care of him for years. The patient is oriented to person, breathing was even, unlabored, lethargic. Daughter reports that he is just sleepy and he woke up to her painful stimuli. The patient has a rash that is small red bumps with mary anne tracts in hand, abdomen, groin. The groin area is macerated. Patient has decubitus ulcer in the buttocks. I answered the daughter's multiple questions. I informed her of labs, diagnostics, and plan of care. She verbalized understanding and is in agreement with the plan. Plan and assessment are listed below. 03/02/2025 - patient seen at bedside, patient currently at baseline, daughter informs that his pedal edema has resolved a lot. Surgery have cleared the patient for discharge, Cardiology want to follow up outpatient. Advised the patient to continue the home medications. Home medications have not been reconciled, advised to continue all the medications recommended by his reference investigator. Patient is currently hemodynamically stable. Cholecystectomy tube insertion site looks free of any infection, patient denies any pain, fever, chills. Patient is advised to follow with his surgeon regularly. Patient has been advised regarding the defibrillator care too. Deskidding Machine Operator(s): cardiology, wound management , general surgery Procedure(s): PATIENT: DEJAH CONNOLLY MR#: [id number] : 1940 SEX: M AGE: 85 LOCATION: [facility] ORDER 43 STATUS: REG REPORT#: [id number] SERVICE 43 REASON: drain evaluation ORDERING PHYSICIAN: JYOTI IRIZARRY MD PROCEDURE: [id number] - US ABDOMINAL RUQ\\LTD ULTRASOUND ABDOMEN LIMITED INDICATION: Right upper abdominal pain COMPARISON: 02/28/2025 CT abdomen and pelvis. FINDINGS: The liver is normal in size and slightly increased in echogenicity; no focal lesion demonstrated. Main portal vein is patent, and normal direction of vascular flow demonstrated. Common bile duct is obscured by overlying bowel gas. Complex gallbladder sludge without associated pericholecystic fluid. No sonographic Navarro's sign elicited by the ultrasound bucket operator. Visible portions of the pancreas appear normal. The right kidney measures 9.7 x 4.8 x 5.7 cm,and is normal in echogenicity, without evidence for hydronephrosis.No shadowing stones demonstrated. No free fluid demonstrated. Small right pleural effusion. Echogenic "catheter-like" structure demonstrated within the anterior right upper abdominal wall. IMPRESSION: Complex gallbladder sludge without cholecystitis. Tip of cholecystostomy catheter may be within the anterior right upper abdominal wall. Small right pleural effusion. Findings suggesting mild hepatic steatosis. 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 Do not skip any doses Report any side effects like dizziness, excessive fatigue, swelling Keep the former tube site clean and dry Monitor for signs of infection like redness, pus, warmth, swelling or effusion Dressing changes to be done as instructed by home health Avoid heavy lifting >> 10 lb and strenuous upper body activity for at least 1-2 weeks Avoid Placing cell phone or magnetic devices near the defibrillator bonding and composite fabricator for shortness of breath, leg swelling or increased fatigue Maintain fluid and sodium restrictions as previously instructed Follow up with the reference investigator in 1 week Follow up with the surgeon in 1 week Follow up with the Gastroenterology in 1 week Follow with primary in 1 week Home Medications: Reported Medications Amoxicillin/Potassium Clav (Amox Tr-K Clv 500-125 mg Tab) 500 Mg-125 Mg Tablet, 1 TAB PEG TID for 10 Days, #20 TAB 0 Refills 03/01/25 Furosemide (Furosemide) 20 Mg Tablet, 20 MG PEG BID, TAB 03/01/25 Pravastatin Sodium (Pravastatin Sodium) 40 Mg Tablet, 80 MG PEG HS, TAB 03/01/25 Finasteride (Finasteride) 5 Mg Tablet, 20 MG PEG BID, TAB 03/01/25 Metformin HCl (Metformin HCl) 1,000 Mg Tablet, 1000 MG PEG BID, TAB 03/01/25 Apixaban (Eliquis) 5 Mg Tablet, 1 TAB PEG BID for 30 Days, #60 TAB 0 Refills 03/01/25 Metoprolol Tartrate (Metoprolol Tartrate) 25 Mg Tablet, 12.5 TAB PO BID for 30 Days, #60 TAB 0 Refills 03/01/25 New Medications: Furosemide (Furosemide) 40 Mg Tablet 40 MG PO BID, #30 TAB Continued Medications: Amoxicillin/Potassium Clav (Amox Tr-K Clv 500-125 mg Tab) 500 Mg-125 Mg Tablet 1 TAB PEG TID for 10 Days, #20 TAB 0 Refills Apixaban (Eliquis) 5 Mg Tablet 1 TAB PEG BID for 30 Days, #60 TAB 0 Refills Finasteride (Finasteride) 5 Mg Tablet 20 MG PEG BID, TAB Metformin HCl (Metformin HCl) 1,000 Mg Tablet 1000 MG PEG BID, TAB Metoprolol Tartrate (Metoprolol Tartrate) 25 Mg Tablet 12.5 TAB PO BID for 30 Days, #60 TAB 0 Refills Pravastatin Sodium (Pravastatin Sodium) 40 Mg Tablet 80 MG PEG HS, TAB Discontinued Medications: Furosemide (Furosemide) 20 Mg Tablet 20 MG PEG BID, TAB Time spent arranging discharge: 1-30 minutes ATTESTATION BY PHYSICIAN I have seen and examined the patient. I reviewed the documentation, medical decision making, and treatment plan as noted by the resident provider above. I agree with the findings and plan of care. Abbey Sheffield MD, KEERTI K MD Mar 02, 2025 15:00
--- NOTE | 2025-03-02 16:06 | CONS ---
CONSULT NOTE: Consulting physician:Dr Potter Consulting service: General surgery Reason for consultation: Cholecystostomy tube evaluation History of present illness: This is an 85-year-old male consulted to surgery after presenting to the hospital with concerns of dislodgement of a percutaneous cholecystostomy tube. Family reports hospitalization at [facility] two weeks prior where patient was not candidate for surgical intervention and cholecystostomy tube has been placed. Patient has been discharge to [facility] and yesterday by accident had rolled over and dislodged cholecystostomy tube. Initial surgeon who saw patient at [facility] has been communicated with the head recommended removal of cholecystostomy tube which was performed by IR earlier today. At this point in time patient with no acute concerns reported. WBCs unremarkable LFTs unremarkable no abdominal pain reported. Patient is currently tolerating diet and we will likely be discharged later today Medical history: Cholecystostomy tube Surgical history: Review of systems: General: No Fever, No Chills, No Night Sweats, No Fatigue, No Malaise, No Appetite, No Other HEENT: No Head Aches, No Visual Changes, No Eye Pain, No Ear Pain, No Dysphasia, No Sinus Congestion, No Post Nasal Drip, No Sore Throat, No Other Pulmonary: No Dyspnea, No Cough, No Pleuritic Chest Pain, No Other Cardiovascular: No: Chest Pain, Palpitations, Orthopnea, Paroxysmal No Dyspnea, Edema, Lt Headedness, Other Gastrointestinal: No: Nausea, Vomiting, Diarrhea, Constipation, Melena, Hematochezia, Other Genitourinary: No Dysuria, No Frequency, No Incontinence, No Hematuria, No Retention, No Other Musculoskeletal: No: other, neck pain, shoulder pain, arm pain, back pain, hand pain, leg pain, foot pain Skin: No Urticaria, No Rash, No Other Neurological: No: Weakness, Numbness, Incoordination, Change in speech, Confusion, Seizures, Other Physical exam: General: Awake alert and oriented Heart: Regular rate and rhythm} Lungs: Clear to auscultation no distress Abdomen: [Soft, nontender, nondistended Assessment: This is an 85-year-old male consulted to surgery for concerns of dislodged cholecystostomy tube with recent removal by IR Plan: At this point in time recommendation from general surgery team will be to follow up with a initial surgeon who treated patient at [facility] Patient made aware of signs and symptoms for potential re presentation if needed Patient will be discharged with antibiotics No surgical intervention planned at this hospitalization Doctor Fatou made aware of patient's status and agrees with plan at this time KARY BEARD Jr. Mar 02, 2025 16:06
[2025-03-02] MEDS ORDERED: FURO40TA5 PO (16:09)
--- NOTE | 2025-03-02 16:48 | NUR ---
Nutrition consult per TF recs Reviewed labs, notes, and medications. Pt from [place], with buttock ulcer, surgery consulted, Pt lethargic, NPO status, PO abx, lasix, BG 127(H), A1C 8.3, elevated BUN 22, Cr WNL per chart review. NPO, last BM 03/02/25, moderate pitting, well nourished, wt via bed scale per nursing. Pt asleep during visit. Observed mild muscle loss, may be due to sarcopenia. Pt with non-severe PCM, Supplement thiamin 100 mg/day for 5-7 days + MVI QD for at least 10 days. TF recs to meet Pt's needs. Start TF rate @ 25 ml/hr for the first 4 hours, increase 5 ml Q2H until you reach goal rate. If residual >500 ml stop TF for 2 hours and then restart if residual continues to be >500 ml stop TF and notify MD Recommendations -Provide Glucerna 1.5 @ 60 ml/hr x 24 hrs + 200 Q4H Provides: 2160 kcals, 119 gm pro, 2292 ml per day -If bolus provide: 6 cans of Jevity 1.5 (times: 0900,1400, 1900, 0000,0400) 30 ml before and after each feed, 1422 ml of formula by end of day -Monitor BM -If no BM >3 days consider stool softener -Monitor electrolytes -Replenish electrolytes per protocol -Monitor wts -Reweigh as able -Order Vit D, vit b12 labs to rule out deficiencies -Provide MVI QD, vit. C 500 mg BID, zinc 220 mg QD to aid in wound healing -Recommend Pt to follow up with PCP -Monitor TF tolerance + need for TF adjustment -Monitor goals of care RD to follow + available for consult per protocol Addendum: 03/02/25 at [address] Amended: Links added.
[2025-03-02] MEDS: IRON sUCROse COMPLEX 100 MG/5 ML VIAL IV ONE (16:58)
[2025-03-02] MEDS: HONEY 1 APPL/ML TUBE TP SCH (17:12)
[2025-03-02] MEDS: BACITRACIN 28.4 GM OINT TP SCH (17:12)
[2025-03-02] MEDS: NYSTatin 15 GM POWDER TP SCH (17:12)
--- NOTE | 2025-03-02 17:19 | NUR ---
DISCHARGE DISCHARGE ORDERS FOR PATIENT TO BE DISCHARGED HOME OBTAINED. DISCHARGE INSTRUCTIONS AND DOCUMENTATION GIVEN TO PATIENT'S DAUGHTER AT BEDSIDE VOICED UNDERSTANDING. INSTRUCTED DAUGHTER ON WOUND CARE INSTRUCTIONS. PER DAUGHTER IS AWARE OF INSTRUCTIONS SINCE SHE'S BEEN DOING IT AT HOME. PROVIDED WITH MEDICATIONS FOR WOUND CARE AND SUPPLIES TO LAST UNTIL CONSULTS WITH PCP. PER DAUGHTER, PATIENT IS ON VITAL 1.5 AT HOME FOR PEG TUBE FEEDINGS, ADVISED TO CONTINUE WITH FEEDING DONE IN PAST AND OR FOLLOWS UP WITH PCP. DAUGHTER VOICED UNDERSTANDING. IV DISCONTINUED BY LORI KNUTSON. NO S/S OF INFECTION NOTED TO AREA. PATIENT TOLERATED WELL. BANDS REMOVED. PENDING TRANSPORTATION.
--- NOTE | 2025-03-02 18:25 | NUR ---
DISCHARGE PATIENT LEFT VIA WHEELCHAIR ACCOMPANIED BY DAUGHTER. NO S/S OF DISTRESS NOTED.
--- NOTE | 2025-03-02 18:57 | NUR ---
Pt DC home prior to PT eval
[2025-03-02] MEDS ORDERED: atorVAStatin 20 MG TABLET PEG SCH (21:00)
== END 2025-03-02 19:56 | disposition home or self-care (01) ==
LOC: EDH 18:00 → EDHIP 18:01 → 4AH 22:32
PROVIDERS: ADMIT Internal Medicine; ATTEND Internal Medicine
DX: K82.8 Other specified diseases of gallbladder (principal); R11.2 Nausea with vomiting, unspecified; R13.19 Other dysphagia; R60.0 Localized edema; I13.0 Hypertensive heart and chronic kidney disease with heart failure and stage 1 through stage 4 chronic kidney disease, or unspecified chronic kidney disease; E11.22 Type 2 diabetes mellitus with diabetic chronic kidney disease; I50.9 Heart failure, unspecified; N18.2 Chronic kidney disease, stage 2 (mild); K59.00 Constipation, unspecified; J18.9 Pneumonia, unspecified organism; L89.309 Pressure ulcer of unspecified buttock, unspecified stage; G93.41 Metabolic encephalopathy; E88.09 Other disorders of plasma-protein metabolism, not elsewhere classified; E86.0 Dehydration; D53.9 Nutritional anemia, unspecified; D50.9 Iron deficiency anemia, unspecified; D63.1 Anemia in chronic kidney disease; E11.65 Type 2 diabetes mellitus with hyperglycemia; R79.1 Abnormal coagulation profile; Z86.73 Personal history of transient ischemic attack (TIA), and cerebral infarction without residual deficits; Z79.899 Other long term (current) drug therapy; Z98.890 Other specified postprocedural states
CPT/HCPCS: 96361 ×2; 99284; 82550; 80076; 84484; 80048; 83690; 85025; 85610; 85730; 36415 ×2; 76705; 96374; 96375; 83036; 84443; 83540; 83550; 82435; 84156; 82570; 82947; 83735; 84100; 84132; 84295; 80053; 82803; 83880; 85027; 85018; 82948; 84439; 83605 ×3; 84481; 81001; 93306; 36600; 84145; G0378 ×23; J7131; J3490; J3475; J1756; J1938

== ENCOUNTER 2025-03-05 12:56 | Emergency (ER) | payer OTHER, MEDICARE ==
[~2025-03-05] VITALS: Ht 180.3 cm; Wt 99.8 kg
[~2025-03-05 12:56] MED LIST changes: +AMOX1TAB15 PEG; +APIX5TAB PEG; +FINA5TAB41 PEG; +FURO20TA4 PEG; +FURO40TA5 PO; -IOHEXOL 350 MG/ML 100ML INFUS..BTL IV ONE; +METF-446 PEG; +METO25TA6 PO; +PRAV40TA62 PEG
--- NOTE | 2025-03-05 13:25 | EKG ---
[facility] Test Date: 2025-03-05 Test Time: 13:21:17 Pat Name: DEJAH ALLEN Department: [facility] Room: Gender: M Washer Machine: [id number] : 1940 Requested By: JYOTI IRIZARRY Order Number: [id number] Reading MD: Juan Yousif Measurements Intervals [place] Rate: 78 P: 0 VA: 196 QRS: -33 QRSD: 163 T: 145 QT: 430 QTc: 489 Interpretive Statements Ventricular-paced rhythm No previous ECG available for comparison Electronically Signed On 03-05-2025 15:12:47 CDT by Juan Yousif Please click the below link to view image of tracing.
[2025-03-05 13:39] LABS: BASOPHILS # (AUTO) 0.01 K/uL (0.00-0.20); BASOPHILS % (AUTO) 0.1 % (0.0-5.0); EOSINOPHILS # (AUTO) 0.05 K/uL (0.00-0.70); EOSINOPHILS % (AUTO) 0.7 % (0.0-8.0); HEMATOCRIT 35.9 % (42-54); IMMATURE GRANULOCYTE ABSOLUTE 0.02 K/uL (0-1); LYMPHOCYTES # (AUTO) 1.3 K/uL (1.0-4.8); LYMPHOCYTES % (AUTO) 18.5 % (21.0-51.0); MEAN CORPUSCULAR HEMOGLOBIN 30.6 pg (27.0-33.0); MEAN CORPUSCULAR HGB CONC 30.4 g/dL (32.0-36.0); MEAN CORPUSCULAR VOLUME 100.8 fL (79-99); MONOCYTES # (AUTO) 0.6 K/uL (0.1-1.0); MONOCYTES % (AUTO) 8.7 % (3.0-13.0); NEUTROPHILS # (AUTO) 5.1 K/uL (1.8-7.7); NEUTROPHILS % (AUTO) 71.7 % (40.0-77.0); PLATELET COUNT (AUTO) 270 K/uL (130-400); RED BLOOD CELL COUNT(AUTO) 3.56 MIL/uL (4.50-6.20); RED CELL DISTRIBUTION WIDTH 18.1 % (11.0-15.5); WHITE BLOOD COUNT (AUTO) 7.1 K/uL (4.8-10.8)
--- NOTE | 2025-03-05 13:41 | ERN ---
General Chief Complaint: Post-Op Problem Stated Complaint: PAIN X2DAYS RT SIDE Time Seen by MD: 12:57 Source: patient History of Present Illness Initial Comments Patient is a an 85-year-old male coming in to be evaluated for abdominal pain. Per patient he has had multiple ER visits secondary to drain placed in his gallbladder due to infection. Per family member patient had the drain removed and now states that he has been having abdominal pain for the past three days. Allergies: Coded Allergies: lisinopril (Unverified Allergy, Unknown, 02/28/25) sulfamethoxazole (Unverified Allergy, Unknown, 02/28/25) trimethoprim (Unverified Allergy, Unknown, 02/28/25) Home Meds Active Scripts Furosemide (Furosemide) 40 Mg Tablet, 40 MG PO BID, #10 TAB take this only for the first 5 days after discharge , take the lasix 20 mg BID after you finish this short course of 40mg Lasix Prov:MING PETTIT MD 03/02/25 Reported Medications Amoxicillin/Potassium Clav (Amox Tr-K Clv 500-125 mg Tab) 500 Mg-125 Mg Tablet, 1 TAB PEG TID for 10 Days, #20 TAB 0 Refills 03/01/25 Furosemide (Furosemide) 20 Mg Tablet, 20 MG PEG BID, TAB 03/01/25 Pravastatin Sodium (Pravastatin Sodium) 40 Mg Tablet, 80 MG PEG HS, TAB 03/01/25 Finasteride (Finasteride) 5 Mg Tablet, 20 MG PEG BID, TAB 03/01/25 Metformin HCl (Metformin HCl) 1,000 Mg Tablet, 1000 MG PEG BID, TAB 03/01/25 Apixaban (Eliquis) 5 Mg Tablet, 1 TAB PEG BID for 30 Days, #60 TAB 0 Refills 03/01/25 Metoprolol Tartrate (Metoprolol Tartrate) 25 Mg Tablet, 12.5 TAB PO BID for 30 Days, #60 TAB 0 Refills 03/01/25 Past Medical History Past Medical History: CHF, Diabetes-Type II, Hypertension, Pneumonia, Stroke Medical History Other: DYSPHAGIA, DYSARTHRIA, UNSTABLE GAIT Past Surgical History: Cholecystectomy Surgical History Other: DRAINAGE DEVICE RUQ, PEG TUBE ROS Dictation CONSTITUTIONAL: No chills, no fever, no weakness, no diaphoresis, no malaise. HEAD/FACE: No signs of trauma. EENT: No eye pain, no blurred vision, no tearing, no double vision, no ear pain, no ear discharge, no nose pain, no nasal congestion, no throat pain, no throat swelling, no mouth pain. RESPIRATORY: No cough, no orthopnea, no SOB, no stridor, no wheezing. CARDIOVASCULAR: No chest pain, no edema, no palpitations, no syncope. GASTROINTESTINAL/ABDOMINAL: abdominal pain, no constipation, no diarrhea, no nausea, no vomiting. GENITOURINARY: No abnormal discharge, no dysuria, no frequent urination, no hematuria. No complaints of pain in the genitals. MUSCULOSKELETAL: No back pain, no gout, no joint pain, no joint swelling, no muscle pain, no muscle stiffness, no neck pain. INTEGUMENTARY: No change in color, no change in hair/nails, no dryness, no lesion, no lumps, no rash. NEUROLOGICAL/PSYCH: No anxiety, not depressed, no emotional problem, no headache, no numbness, no pre-existing deficit, no history of seizures, no tremors, no weakness. HEMATOLOGIC/LYMPHATIC: Not anemic, no history of blood clots, no apparent bleeding, no bruising, glands not swollen. All Systems Negative, Except as Noted. Physical Exam Physical Exam Dictation VITAL SIGNS: Reviewed. GENERAL APPEARANCE: Alert, oriented x3, no acute distress, obese. HEAD AND FACE: Non-traumatic. EYES: PERRL, pink conjunctivas, eyelid no trauma, anterior chamber clear. EARS: Pinnas intact and no signs of trauma or erythema. Ear canals clear and no discharge. TMs no erythema. NOSE: No discharge, no bleeding. OROPHARYNX: Mouth normal, teeth no caries, tongue pink. Pharynx clear, no erythema. Tonsils no exudates, no abscesses noted. Mucous membrane moist. NECK: Supple, non-tender, no thyromegaly, no masses, no JVD, no bruits. BREAST: Deferred. CHEST: No tenderness, no crepitus, no paradoxical movement, no retractions. LUNGS: Clear, well-ventilated, symmetric, no rales, no wheezing, no rhonchi, no stridor, good breath sounds bilaterally. HEART: Regular rate, regular rhythm, no murmur, no gallops. VASCULAR: No peripheral edema. ABDOMEN: Soft, positive bowel sounds, nondistended, no guarding, nontender, no rebound, no masses no hepatomegaly, no splenomegaly, no Navarro's sign, no hernias. RECTAL: Deferred. GENITAL: Deferred. NEUROLOGICAL: Normal speech, gross motor function intact, gross sensory function intact. MUSCULOSKELETAL: Neck nontender, full range of motion, back nontender, full range of motion. EXTREMITIES: Nontender, full range of motion. SKIN: Color pink, dry, no turgor, no rash, no lacerations, no abrasions, no contusions. LYMPHATICS: Deferred. Results Laboratory and Microbiology Lab and Micro Result Laboratory Tests Test 03/05/25 13:30 03/05/25 14:38 White Blood Count 7.1 K/uL (4.8-10.8) Red Blood Count 3.56 MIL/uL (4.50-6.20) L Hemoglobin 10.9 g/dL (14.0-18.0) L Hematocrit 35.9 % (42-54) L Mean Corpuscular Volume 100.8 fL (79-99) H Mean Corpuscular Hemoglobin 30.6 pg (27.0-33.0) Mean Corpuscular Hemoglobin Concent 30.4 g/dL (32.0-36.0) L Red Cell Distribution Width 18.1 % (11.0-15.5) H Platelet Count 270 K/uL (130-400) Mean Platelet Volume 9.6 fL (7.5-10.5) Immature Granulocyte % (Auto) 0.3 % (0-1) Neutrophils (%) (Auto) 71.7 % (40.0-77.0) Lymphocytes (%) (Auto) 18.5 % (21.0-51.0) L Monocytes (%) (Auto) 8.7 % (3.0-13.0) Eosinophils (%) (Auto) 0.7 % (0.0-8.0) Basophils (%) (Auto) 0.1 % (0.0-5.0) Neutrophils # (Auto) 5.1 K/uL (1.8-7.7) Lymphocytes # (Auto) 1.3 K/uL (1.0-4.8) Monocytes # (Auto) 0.6 K/uL (0.1-1.0) Eosinophils # (Auto) 0.05 K/uL (0.00-0.70) Basophils # (Auto) 0.01 K/uL (0.00-0.20) Absolute Immature Granulocyte (auto 0.02 K/uL (0-1) Nucleated Red Blood Cells 0.0 % (0.0-0.19) Sodium Level 139 mmol/L (136-145) Potassium Level 3.8 mmol/L (3.5-5.1) Chloride Level 101 mmol/L (101-111) Carbon Dioxide Level 32 mmol/L (21-32) Blood Urea Nitrogen 16 mg/dL (7-18) Creatinine 0.8 mg/dL (0.5-1.3) Glomerular Filtration Rate Calc 87 mL/min (>90) Random Glucose 197 mg/dL (70-105) H Total Calcium 8.4 mg/dL (8.5-10.1) L Total Bilirubin 0.6 mg/dL (0.2-1.0) Aspartate Amino Transf (AST/SGOT) 34 U/L (10-37) Alanine Aminotransferase (ALT/SGPT) 24 U/L (12-78) Alkaline Phosphatase 180 U/L (50-136) H Troponin I High Sensitivity 28 ng/L (4-75) Total Protein 7.8 g/dL (6.0-8.3) Albumin 2.1 g/dL (3.5-5.0) L Lipase 12 U/L (16-77) L Urine Color YELLOW (YELLOW) Urine Appearance CLEAR (CLEAR) Urine pH 7.0 (5.0-8.0) Urine Specific [place] 1.011 (1.001-1.031) Urine Protein 20 mg/dL (NEGATIVE) H Urine Glucose (UA) >=1000 mg/dL (NEGATIVE) H Urine Ketones NEGATIVE mg/dL (NEGATIVE) Urine Occult Blood NEGATIVE (NEGATIVE) Urine Nitrate NEGATIVE (NEGATIVE) Urine Bilirubin NEGATIVE mg/dL (NEGATIVE) Urine Urobilinogen 0.2 mg/dL (0.2-1.0) Urine Leukocyte Esterase NEGATIVE Klever/uL Urine RBC 2-5 /HPF (0-1) H Urine WBC 2-5 /HPF (0-1) H Urine Squamous Epithelial Cells RARE /HPF (0-2) Urine Bacteria None /HPF (None Seen) Labs Reviewed?: Yes EKG/XRAY/US/CT/MRI EKG Comment 03/05/2025 time 1:21 p.m. Ventricular rate [address] wave elevation or depression X-RAY Comment IMAGING REPORT Signed PATIENT: DEJAH ALLEN MR#: [id number] : 1940 SEX: M AGE: 85 LOCATION: [facility] ORDER [id number] STATUS: REG ER REPORT#: [id number] SERVICE [id number] REASON: Adominal Pain ORDERING PHYSICIAN: JYOTI IRIZARRY MD PROCEDURE: ABDRUQLTD - US ABDOMINAL RUQ\LTD US ABDOMINAL RUQ\E\LTD HISTORY: Abdominal pain COMPARISON: None TECHNIQUE: Right upper quadrant abdominal ultrasound study was performed. FINDINGS: Liver measured 14 cm. Sludge material is seen in the gallbladder. The visualized portion of the pancreas is within normal limits. Liver is echogenic consistent with liver parenchymal disease. No gallstone is seen. Common duct is not seen. Gallbladder wall is thick measuring 4 mm. Right kidney measures 10.1 x 6.2 x 5.8 cm. No hydronephrosis is seen of the right kidney. Right pleural effusion is seen. IMPRESSION: 1. Sludge material in the gallbladder. No gallstones. Common duct is not seen. Gallbladder wall thickening. Right pleural effusion. 2. No hydronephrosis is seen. DICTATED BY: JESSE MERIRTT MD DATE: 03/05/251435 ELECTRONICALLY SIGNED BY: JESSE MERRITT MD DATE: 03/05/[address] Scan Comment [address] [address] IMAGING REPORT Signed PATIENT: DEJAH ALLEN MR#: [id number] : 1940 SEX: M AGE: 85 LOCATION: [facility] ORDER [id number] STATUS: REG ER REPORT#: [id number] SERVICE 1432 REASON: ruq pain/ sp draine removal ORDERING PHYSICIAN: JYOTI IRIZARRY MD PROCEDURE: ABD PEL W - CT ABDOMEN/PELVIS W/CONTRAST CT ABDOMEN/PELVIS W/CONTRAST HISTORY: Right upper quadrant pain, status post drain removal COMPARISON: None TECHNIQUE: Multiple sequential axial images of the abdomen and pelvis were obtained from the dome of the diaphragm through symphysis pubis. Patient was given 75 cc of Omnipaque through intravenous route. Oral contrast was not given. FINDINGS: There are bilateral pleural effusions with compressive atelectasis. Mild bilateral pulmonary infiltrates are seen. Degenerative changes of the thoracolumbar spine are present. The heart is not enlarged. Gastrostomy tube is seen with distal tip in the stomach. Gallbladder is moderately distended with sludge material with mild gallbladder wall thickening. The liver, spleen, adrenal glands and pancreas are unremarkable. There is no evidence of hydronephrosis bilaterally. No evidence of renal stone is seen. Fecal material is seen in the colon. There are normal size retroperitoneal and mesenteric lymph nodes. No ascites is seen. Atherosclerotic changes are present. Pelvic sidewalls are symmetric bilaterally. The bladder is markedly distended. IMPRESSION: 1. Slight enlargement or in the moderately distended gallbladder with mild gallbladder wall thickening. Bladder is markedly distended. Bilateral pleural effusions and compressive atelectasis. CT was performed with one or more following dose reduction techniques: automated exposure control, adjustment of the mA and kv according to patient's size, or use of a iterative reconstruction technique. DICTATED BY: JESSE MERRITT MD DATE: 03/05/25 161 ELECTRONICALLY SIGNED BY: JESSE MERRITT MD DATE: 03/05/25 1620 [facility] MDM: Differential diagnosis: Gallbladder distention, sludge, cholecystitis, Rationale: Tests considered and ordered secondary to shared decision making include: Previous outside records reviewed: Old ER visits. Risk of complication and/or morbidity or mortality of patient management: None Medications-Per medication reconciliation Need for hospitalization: Patient does meet criteria for hospitalization. Need for emergency major/minor surgery: No There are no social concerns with this patient. Prescription drug management Prescriptions will include symptomatic care Patient's prior external medical records from other ER visits were reviewed by me as indicated. Prior testing and results from previous visits were reviewed. Prior tests were taken into account with medical decision making and resource utilization, independent historian/historians were used to obtain complete medical history. I independently interpreted the test that were performed, results were reviewed by me and considered findings on radiology if ordered. Medical management and examination interpretation discussions were had by me with other qualified healthcare professionals as indicated for the patient's care. Patient is an 85-year-old gentleman coming in due to recent drain removal and complications of that. Per patient and family member patient had drain removed three days ago. She states that the drain was removed here. PATIENT [facility] ARGUET[facility]. PER DR. SALEH PATIENT HAS A HISTORY OF CVA IN HIS CURRENTLY ON SEVERAL BLOOD THINNERS WHICH MAKES HIM NOT A GOOD CANDIDATE FOR CHOLECYSTECTOMY. PATIENT WILL BE TRANSFERRED BACK TO [facility] UNDER THE CARE OF DR. ARGUETA FOR ONGOING MANAGEMENT AND POSSIBLE REINSERTION OF DRAINED. PATIENT WILL BE TRANSFERRED TO [facility] SPOKE TO ER MD DR. ROQUE. ED Course Orders Procedure Category Date Status Time Cbc With Differential LAB 03/05/25 Complete 12:59 Comprehensive LAB 03/05/25 Complete Metabolic Panel 12:59 Troponin I High LAB 03/05/25 Complete Sensitivity 12:59 Urinalysis Profile LAB 03/05/25 Complete 12:59 Us Abdominal Ruq\Ltd US 03/05/25 Resulted 12:59 12 Lead Ekg Tracing- EKG 03/05/25 Resulted Technical 12:59 Lipase LAB 03/05/25 Complete 12:59 Ct Abdomen/Pelvis CT 03/05/25 Resulted W/Contrast 14:35 Iohexol (Omnipaque) PHA 03/05/25 Complete 14:58 Drug Screen Urine LAB 03/05/25 Logged 16:14 Current Medications Medications (Trade) Dose Ordered Sig/Bee Route PRN Reason Start Time Stop Time Status Last Admin Dose Admin Iohexol (Omnipaque) 75 ml STK-MED ONCE IV 03/05/25 14:58 03/05/25 14:58 DC Vital Signs Date Time Temp Pulse Resp B/P (MAP) Pulse Ox O2 Delivery O2 Flow Rate FiO2 03/05/25 17:00 97.3 70 20 152/70 95 Room Air* 0 21 03/05/25 15:15 97.7 70 20 155/77 95 Room Air* 0 03/05/25 13:13 98.6 71 16 138/66 96 Room Air 0 DX & DISP Disposition: Transfer Departure Impression: Primary Impression: Dehydration Additional Impressions: Cholecystostomy tube dysfunction, Acute abdominal pain Condition: Stable Referrals: JOLENE BRYANT MD (PCP) JYOTI IRIZARRY MD Mar 05, 2025 13:41
[2025-03-05 13:52] LABS: CREATININE 0.8 mg/dL (0.5-1.3); POTASSIUM 3.8 mmol/L (3.5-5.1)
[2025-03-05 13:56] LABS: ALBUMIN 2.1 g/dL (3.5-5.0); BILIRUBIN,TOTAL 0.6 mg/dL (0.2-1.0); TOTAL PROTEIN, SERUM 7.8 g/dL (6.0-8.3)
--- NOTE | 2025-03-05 14:40 | HMCIMG ---
US ABDOMINAL RUQ\E\LTD HISTORY: Abdominal pain COMPARISON: None TECHNIQUE: Right upper quadrant abdominal ultrasound study was performed. FINDINGS: Liver measured 14 cm. Sludge material is seen in the gallbladder. The visualized portion of the pancreas is within normal limits. Liver is echogenic consistent with liver parenchymal disease. No gallstone is seen. Common duct is not seen. Gallbladder wall is thick measuring 4 mm. Right kidney measures 10.1 x 6.2 x 5.8 cm. No hydronephrosis is seen of the right kidney. Right pleural effusion is seen. IMPRESSION: 1. Sludge material in the gallbladder. No gallstones. Common duct is not seen. Gallbladder wall thickening. Right pleural effusion. 2. No hydronephrosis is seen.
[2025-03-05 14:45] LABS: APPEARANCE,URINE CLEAR (CLEAR); BILIRUBIN,URINE NEGATIVE (NEGATIVE); COLOR,URINE YELLOW (YELLOW); GLUCOSE, URINE (UA) >=1000 mg/dL (NEGATIVE); KETONES,URINE NEGATIVE (NEGATIVE); LEUKOCYTE ESTERASE ,URINE NEGATIVE Leu/uL (NEGATIVE); NITRATE,URINE NEGATIVE (NEGATIVE); OCCULT BLOOD,URINE NEGATIVE (NEGATIVE); PROTEIN,URINE 20 mg/dL (NEGATIVE); UROBILINOGEN,URINE 0.2 mg/dL (0.2-1.0)
[2025-03-05 14:46] LABS: ADD UA MICROSCOPIC YES
[2025-03-05 14:50] LABS: MUCUS,URINE RARE LPF (None Seen); SQUAMOUS EPITHELIAL CELL,UR RARE /HPF (0-2)
[2025-03-05] MEDS ORDERED: IOHEXOL-350 75 ML VIAL IV ONE (14:58)
--- NOTE | 2025-03-05 16:20 | HMCIMG ---
CT ABDOMEN/PELVIS W/CONTRAST HISTORY: Right upper quadrant pain, status post drain removal COMPARISON: None TECHNIQUE: Multiple sequential axial images of the abdomen and pelvis were obtained from the dome of the diaphragm through symphysis pubis. Patient was given 75 cc of Omnipaque through intravenous route. Oral contrast was not given. FINDINGS: There are bilateral pleural effusions with compressive atelectasis. Mild bilateral pulmonary infiltrates are seen. Degenerative changes of the thoracolumbar spine are present. The heart is not enlarged. Gastrostomy tube is seen with distal tip in the stomach. Gallbladder is moderately distended with sludge material with mild gallbladder wall thickening. The liver, spleen, adrenal glands and pancreas are unremarkable. There is no evidence of hydronephrosis bilaterally. No evidence of renal stone is seen. Fecal material is seen in the colon. There are normal size retroperitoneal and mesenteric lymph nodes. No ascites is seen. Atherosclerotic changes are present. Pelvic sidewalls are symmetric bilaterally. The bladder is markedly distended. IMPRESSION: 1. Slight enlargement or in the moderately distended gallbladder with mild gallbladder wall thickening. Bladder is markedly distended. Bilateral pleural effusions and compressive atelectasis. CT was performed with one or more following dose reduction techniques: automated exposure control, adjustment of the mA and kv according to patient's size, or use of a iterative reconstruction technique.
[2025-03-05 17:00] VITALS: TEMP 97.4
--- NOTE | 2025-03-05 17:20 | NUR ---
TRANSFER OUT REQUEST TO [facility] FOR CONTINUITY OF CARE PER DR IRIZARRY HE ALREADY SPOKE WITH DR LOWE. LAW SALAZAR
--- NOTE | 2025-03-05 17:37 | NUR ---
TRANSFER MET WITH PT AND DAUGHTER CONSENT SIGN FOR PT STATES I SIGN FOR HIM , INFORM OF TRANSFER PROCESS AND SHE VERBALIZED UNDERSTANDING , LAW SALAZAR
--- NOTE | 2025-03-05 18:00 | NUR ---
TRANSFER CALL PLACE TO [facility] [phone] SPOKE WITH PRAFUL AND INFORMATION PROVIDED AND WILL CALL BACK.
--- NOTE | 2025-03-05 18:35 | NUR ---
TRANSFER NURSE CALL BACK WITH ACCEPTANCE UNDER DR BROWNLEE TO ER PRIMARY NURSE TO CALL REPORT TO [phone] AND EMS WHEN READY. LAW SALAZAR
[2025-03-05 20:47] VITALS: BP 154/58; PULSE 70; RESP 18; O2SAT 96
--- NOTE | 2025-03-05 20:50 | NUR ---
[facility]
--- NOTE | 2025-03-05 20:57 | NUR ---
[facility]
--- NOTE | 2025-03-05 20:58 | NUR ---
SPOKE WITH [facility] CHRISSY OCONNOR REGARDING PT IN ROUTE TO THEIR FACILITY.
== END 2025-03-05 20:57 | disposition short-term general hospital (02) ==
LOC: EDH 12:56
DX: K94.03 Colostomy malfunction (principal); E86.0 Dehydration; E11.9 Type 2 diabetes mellitus without complications; I11.0 Hypertensive heart disease with heart failure; I50.9 Heart failure, unspecified; Z79.01 Long term (current) use of anticoagulants; Z79.84 Long term (current) use of oral hypoglycemic drugs; Z79.899 Other long term (current) drug therapy; Z86.73 Personal history of transient ischemic attack (TIA), and cerebral infarction without residual deficits; Z88.1 Allergy status to other antibiotic agents; Z88.2 Allergy status to sulfonamides; Z88.8 Allergy status to other drugs, medicaments and biological substances; Z90.49 Acquired absence of other specified parts of digestive tract
CPT/HCPCS: 99285; 74177; 76705; 84484; 80053; 83690; 85025; 82948 ×2; 81001; 36415; 93005; Q9967